=== PATIENT | male | born 1990 | race Two or more races ===

== ENCOUNTER 2017-03-26 23:19 | Emergency (ER) | payer MEDICAID ==
[~2017-03-26] VITALS: Ht 170.2 cm; Wt 68.0 kg
[2017-03-26 23:19] VITALS: BP 107/67
== END 2017-03-27 00:43 | disposition home or self-care (01) ==
LOC: ER 23:25
DX: I88.9 Nonspecific lymphadenitis, unspecified (principal)
CPT/HCPCS: 99281; A4606; Z7610; Z7502